=== PATIENT | female | born 1995 | race Caucasian/White ===

== ENCOUNTER 2016-11-03 18:02 | Emergency (ER) | payer OTHER ==
[~2016-11-03 18:02] MED LIST: ADDERALL XR 2020 M1 PO; BENTYL10 MG PO; CELEXA20 MG PO; DEPO-SUBQ104 MG/0.6 SQ; LEXAPRO20 M2 PO; LUPRON DEPOT3.75 MG IM; MACROBID 100 M100 M1 PO; MINIPRESS5 M1 PO; MOTRIN400 MG PO; MOTRIN600 MG PO; NO MEDICATIONS; NORETHINDRONE PO; TRAZODONE50 MG PO; TYLENOL WITH C1 EACH PO; ZOFRAN ODT4 MG/UDTAB PO; [UNRECOGNIZED DRUG - OTHER] PO
[2016-11-03] MEDS ORDERED: ULTRAM50 M1 PO (18:13)
[2016-11-03 19:16] LABS: BASO % 0.1 % (0-2); EOS % 1.8 % (0-7); EOSINOPHIL ABSOLUTE COUNT 0.1 tho/cmm (0.0-0.7); HCT-HEMATOCRIT 43.9 % (34.0-49.0); HGB-HEMOGLOBIN 15.3 gm/dl (12.0-15.5); IMMATURE GRANULOCYTES ABSOLUTE 0.01 tho/cmm (0-0.03); IMMATURE GRANULOCYTES PERCENT 0.1 % (0-0.3); LYMPH ABSOLUTE COUNT 1.9 tho/cmm (0.8-4.5); MCH (MEAN CORPUSCULAR HGB) 31.6 pg (28.0-32.0); MCHC MEAN CORPUSCULAR HGB CONC 34.9 % (32.0-36.0); MCV (MEAN CELL VOLUME) 90.7 fl (82.0-96.0); MEAN PLATELET VOLUME 11.3 cmc (9.4-12.4); MONO % 7.5 % (0-12); MONOCYTE ABSOLUTE COUNT 0.6 tho/cmm (0.0-1.2); NEUTROPHIL ABSOLUTE COUNT 5.2 tho/cmm (1.6-8.0); NEUTROPHIL-AUTOMATED 5.2 tho/cmm (1.6-8.0); NEUTROPHILS % 66.5 % (40-80); PLATELET COUNT 170 tho/cmm (150-450); RED BLOOD COUNT 4.84 mil/cmm (4.00-5.20); RED CELL DISTRIBUTION WIDTH 12.5 % (12.4-16.4); WHITE BLOOD COUNT 7.8 tho/cmm (4.0-10.0)
[2016-11-03 19:17] LABS: URINE BILIRUBIN NEGATIVE (NEG); URINE BLOOD LARGE (NEG); URINE GLUCOSE (UA) NEGATIVE (NEG); URINE KETONE NEGATIVE (NEG); URINE LEUKOCYTE ESTERASE POSITIVE (NEG); URINE NITRITE NEGATIVE (NEG); URINE PROTEIN NEGATIVE (NEG); URINE SPECIFIC GRAVITY 1.005 (1.003-1.030)
[2016-11-03 19:24] LABS: URINE APPEARANCE CLEAR; URINE COLOR PALE YELLOW
[2016-11-03 19:26] LABS: URINE EPITHELIAL CELLS 0-5 /[HPF] (0-10); URINE WBC 0-2 /[HPF] (0-5)
[2016-11-03] MEDS ORDERED: NORCO 5-325 TA1 EACH PO (21:06)
[2017-01-13] MEDS ORDERED: ULTRAM50 M1 PO (11:04)
[2017-01-13] MEDS ORDERED: IBUPROFEN800 M1 PO (11:04)
== END 2016-11-03 21:16 ==
LOC: EDMED 18:02
PROVIDERS: Nurse Practitioner Family
DX: R10.2 Pelvic and perineal pain (principal); Z98.890 Other specified postprocedural states; F17.200 Nicotine dependence, unspecified, uncomplicated
CPT/HCPCS: J2270

== ENCOUNTER 2016-11-24 09:41 | Emergency (ER) | payer OTHER ==
[~2016-11-24 09:41] MED LIST changes: +NORCO 5-325 TA1 EACH PO; +ULTRAM50 M1 PO
[2016-11-24 11:41] LABS: URINE BILIRUBIN NEGATIVE (NEG); URINE BLOOD MODERATE (NEG); URINE GLUCOSE (UA) NEGATIVE (NEG); URINE KETONE NEGATIVE (NEG); URINE LEUKOCYTE ESTERASE NEGATIVE (NEG); URINE NITRITE NEGATIVE (NEG); URINE PROTEIN NEGATIVE (NEG)
[2016-11-24 11:46] LABS: URINE APPEARANCE CLEAR; URINE COLOR YELLOW
[2016-11-24 11:49] LABS: URINE EPITHELIAL CELLS 0-2 /[HPF] (0-10); URINE MUCUS 2+; URINE WBC 0-1 /[HPF] (0-5)
[2017-01-13] MEDS ORDERED: ULTRAM50 M1 PO (11:04)
[2017-01-13] MEDS ORDERED: IBUPROFEN800 M1 PO (11:04)
== END 2016-11-24 13:31 ==
LOC: EDMED 09:41
PROVIDERS: Physician Assistant
DX: N83.201 Unspecified ovarian cyst, right side (principal); G89.29 Other chronic pain; R10.2 Pelvic and perineal pain; F17.210 Nicotine dependence, cigarettes, uncomplicated